=== PATIENT | female | born 1995 ===

== ENCOUNTER → 2018-01-23 | Outpatient (CLI) | payer BC ==
[~2018-01-23] MED LIST: DIVA250EC PO; IBUP200; LAMO25 PO; NAPR220; PHENY100ER PO
[2018-01-25 12:30] LABS: HPV Genotype 16 Not Detected (NOTDET); HPV Genotype 18 Not Detected (NOTDET)
[2018-01-29 09:25] LABS: HPV High Risk Other Not Detected (NOTDET)
== END | disposition home or self-care (01) ==
LOC: LAB 16:33
PROVIDERS: Obstetrics & Gynecology Gynecology
DX: L29.3 Anogenital pruritus, unspecified (principal); N87.1 Moderate cervical dysplasia; R21 Rash and other nonspecific skin eruption
CPT/HCPCS: 87070; 87205; 87624; 88142

== ENCOUNTER → 2018-05-23 | Outpatient (CLI) | payer BC | END | disposition home or self-care (01) | LOC: LAB 17:13 → LAB SHORT 17:13 | PROVIDERS: Obstetrics & Gynecology Gynecology | DX: N87.1 Moderate cervical dysplasia (principal) | CPT/HCPCS: 87624; 88142 ==

== ENCOUNTER → 2019-10-23 | Outpatient (CLI) | payer BC, OTHER ==
[2019-10-25 15:07] LABS: HPV 16 Negative (Negative); HPV 18 Negative (Negative); HPV OTHER HR TYPES Negative (Negative)
== END | disposition home or self-care (01) ==
LOC: LAB SHORT 17:55 → LAB 17:55
PROVIDERS: Nurse Practitioner Women's Health
DX: Z12.4 Encounter for screening for malignant neoplasm of cervix (principal)
CPT/HCPCS: 87624; G0123

== ENCOUNTER → 2023-06-05 | Outpatient (CLI) | payer OTHER | LOC: LAB SHORT 12:00 → LAB 12:00 | DX: L02.416 Cutaneous abscess of left lower limb (principal) | CPT/HCPCS: 87070; 87075; 87205 ==